=== PATIENT | female | born 1955 | race Caucasian/White ===

== ENCOUNTER 2019-05-13 09:00 | Emergency (ER) | payer BC ==
--- OUTSIDE RECORDS SUMMARY | 2019-05-13 09:12 | XMS REPORT | Continuity of Care Document ---
:1955 External Reference #:[id number] Author Name OLLIE Jenkins Address [address] [place] [address] Care Team Providers Name Role Phone Mecca Santiago M.D. - Family Medicine Care Team Information Proof Carrier Unavailable Dena Carney MD - Care Team Information Proof Carrier [phone] Gastroenterology Problems Active Problems Provider Date Gastroesophageal reflux disease Cherri Miles NP Onset: 01/02/2019 Essential hypertension Cherri Miles NP Onset: 01/02/2019 Hyperlipidemia Mecca Santiago M.D. Onset: 01/02/2019 Herpesvirus infection Mecca Santiago M.D. Onset: 02/27/2019 Tobacco user Mecca Santiago M.D. Onset: 02/27/2019 Social History Type Date Description Comments Sex Unknown Tobacco Use Start: Unknown Light tobacco smoker (10 or fewer cigarettes/day) ETOH Use Rare a drink at big gatherings Recreational Drug Use Marijuana Tobacco Use Reviewed: 02/27/19 Patient is a current 4-5 a day, ongoing 43 smoker, smokes every years, up to 1/2 ppd day decreased 4 years ago Smoking Status Reviewed: 02/27/19 Patient is a current 4-5 a day, ongoing 42 smoker, smokes every years, up to 1/2 ppd day decreased 4 years ago Exercise Type/Frequency Exercises sporadically Allergies, Adverse Reactions, Alerts Description No Known Drug Allergies Medications Active Medications SIG Qnty Indications Ordering Date Provider Macrobid 1 by mouth twice 10caps R30.0 Noelle 04/24/2019 100mg Capsules a day with meals OLLIE Loredo Albuterol Sulfate HFA Inhale 2 Puffs By 90units R06.02 Mecca Santiago 02/27 Mouth Every 4 M.D. 108(90Base) mcg/Act Hours as Needed Aerosol For Cough Or Shortness Of Breath Or Wheezing Bupropion take 1 tablet by 90tabs [facility]3], 11/23/2018 Hydrochloride ER (XL) mouth every M.D. morning 150mg Tablets ER 24HR Nexium 1 by mouth twice 180caps K21.9 [facility]3], 05/15/[address] a day M.D. Valacyclovir HCL Take 1 Tablet By 90tabs [facility]3], 500mg Mouth Every Day M.D. Tablets Metoprolol Tartrate 1 by mouth twice 180tabs [facility]3], a day M.D. 100mg Tablets Amlodipine Besylate take 1 tablet by 90tabs [facility]3], mouth every day M.D. 10mg Tablets Immunizations CPT Code Status Date Vaccine Lot # [id number] Given 04/24/2019 Influenza Vac, Quadrivalent, Slit Virus, Im [id number] Vital Signs Date Vital Result Comment 04/24/2019 10:39am BP Systolic 140 mmHg BP Diastolic 80 mmHg Heart Rate 60 /min Body Temperature 97.5 F Respiratory Rate 16 /min Weight 147.00 lb 02/27/2019 10:28am BP Systolic 120 mmHg BP Diastolic 70 mmHg Heart Rate 68 /min Body Temperature 98.0 F Respiratory Rate 16 /min Height 62 inches 5'2" Weight 149.00 lb BMI (Body Mass Index) 27.2 kg/m2 Results Test Date Facility Test Result H/L Range Note Ua - Non Micro ([facility]) 04/24/2019 Family Medicine Appearance cloudy (607)- - Color brown Glucose, Urine (a/CMC/CTX) negative Bilirubin ICTO NEG Ketones trace SP Grav 1.025 Blood large PH 5.0 Protein 100 High Ssa 3+ Urobil 0.2 Nitrite negative Leukocytes [place] Laboratory test 04/18/2019 [facility] SEE RESULT 1, 2 finding Order BELOW Ua - Non Micro 02/27/2019 Family Medicine Appearance CLEAR ([facility]) (607)- - Color YELLOW Glucose, Urine (a/CMC/CTX) NEG Bilirubin NEG Ketones NEG SP Grav 1.015 Blood NEG PH 5.0 Protein NEG Urobil 0.2 Nitrite NEG Leukocytes [place] NEG Comprehensive Metabolic 02/27/2019 [place] Milly([facility]) Sodium 144 mEq/L 134-149 Prof Potassium 4.5 mEq/L 3.6-5.5 Chloride 106 mEq/L 94-112 Carbon Dioxide 28 mEq/L 21-32 Glucose 84 mg/dL 70-105 BUN 19 mg/dL 6-26 Creatinine 0.7 mg/dL 0.6-1.4 BUN/Creat Ratio 27.1 CALC 8.0-36.0 Calcium 9.2 mg/dL 8.6-10.2 Total Protein 7.2 g/dL 6.4-8.3 Albumin 4.4 g/dL 3.8-5.5 Globulin 2.8 g/dL 2.0-4.8 A/G Ratio 1.6 CALC 0.6-2.3 Alk. Phosphatase 101 U/L 30-110 Alt (SGPT) 8 U/L 7-35 Ast (Sgot) 12 U/L 5-34 Total Bilirubin 0.5 mg/dL 0.2-1.3 GFR Non- >60 ml/min/1.73m^ >=60 GFR >60 ml/min/1.73m^ >=60 Laboratory test 02/27/2019 Francis Atkins([facility]) TSH 1.43 mIU/L 0.50-6.00 finding Lipid Profile 02/27/2019 Francis Atkins([facility]) Cholesterol 230 mg/dL High 120-200 Triglycerides 211 mg/dL High 30-200 HDL Cholesterol 43 mg/dL 30-85 LDL (Calculated) 145 CALC High 0-129 VLDL Cholesterol 42 mg/dL 0-50 HDL Risk Factor 5.3 CALC High 0.0-4.4 CBC Electronic a 02/27/2019 Francis Atkins([facility]) WBC 8.0 x10^3/UL 4.0- 10.0 RBC 4.83 x10^6/UL 3.93-6.00 HGB 14.6 g/dL 12.0-17.0 HCT 44 % 35-50 MCV 91.9 fL 80.0-95.0 MCH 30.2 pg 25.6-32.2 MCHC 32.9 g/dL 32.2-36.0 RDW-CV 13.6 % 11.6-14.4 PLT 244 x10^3/UL 163-400 MPV 11.2 fL 9.4-12.4 Ariadna# 5.18 x10^3/UL 1.56-6.13 Lymph# 1.26 x10^3/UL 1.18-3.74 Ware# 1.08 x10^3/UL High 0.24-0.82 Eos # 0.4 x10^3/UL 0.0-0.5 Baso # 0.08 x10^3/UL 0.01-0.08 Ariadna% 64.5 % 34.0-70.0 Lymph % 15.7 % Low 20.0-52.0 Ware% 13.5 % High 5.0-12.0 Eos% 4.4 % 0.7-7.0 Baso% 1.0 % 0.1-1.2 1 [id number] 2 SEE RESULT BELOW Name: RONALD BOURNE : [address]: Dena Carney MD Acct: [id number] Unit: [id number] AGE: 63 Location: ENDOCEC Re04/18/19 SEX: F Status: DEP REF SPEC: [id number] ANH: 04/18/19-1144 [facility] DR: Dena Alvarado MD REQ: [id number] RECD: 04/18/19-693 STATUS: OSEAS PRICE DR: Mecca Santiago MD _ ORDERED: LEVEL 4/3 COMMENTS: [id number] FINAL DIAGNOSIS 1. Colon, ascending, biopsy: -- Tubular adenoma. -- No high grade dysplasia or malignancy. 2. Colon, transverse, biopsy: -- Tubular adenoma. -- No high grade dysplasia or malignancy. 3. Colon, rectum, biopsy: -- Hyperplastic polyps. CLINICAL HISTORY History of polyps POST-OPERATIVE DIAGNOSIS Colonoscopy: to terminal ileum; 8 mm ascending cold snare; 8 mm descending cold snare; (2) rectal 4 mm cold snare; diverticulosis left colon; internal hemorrhoid; hyperplastic polyp GROSS DESCRIPTION 1. The specimen is received in formalin labeled, Ascending Colon Polyp, and consists of a 0.5 x 0.4 x 0.2 cm aggregate of louise-white irregular to polypoid soft tissue fragments which is submitted entirely in one cassette. 2. The specimen is received in formalin labeled, Transverse Colon Polyp, and consists of a 0.8 by up to 0.3 x 0.2 cm white-pink irregular soft tissue fragment which is submitted entirely in one cassette. 3. The specimen is received in formalin labeled, Rectal Polyps, and consists of two CONTINUED ON NEXT PAGE DEPARTMENT OF PATHOLOGY, [address] [place] [address] Terence Celeste M.D. Director [facility] # [id number] louise-white irregular to polypoid soft tissue fragments measuring 0.3 x 0.2 x 0.1 cm and 0.5 x 0.3 x 0.2 cm. The larger fragment is inked, bisected and the specimen is submitted entirely in one cassette. Signed by and Reported on: Noelle Gresham MD 04/19/19 1243 END OF REPORT DEPARTMENT OF PATHOLOGY, [facility] [address] [place], [place] [address] Terence Celeste M.D. Director [facility] # [id number] Procedures Date Code Description Status 03/28/2019 [id number] Mammogram Completed 10/11/2017 [id number] Mammogram Completed Medical Devices Description No Information Available Encounters Type Date Location Provider Dx Diagnosis Office Visit 02/27/2019 [facility] Office Mecca Santiago, I10 Essential ( primary) 10:20a M.D. hypertension K21.9 Gastro-esophageal reflux disease without esophagitis Z12.11 Encounter for screening for malignant neoplasm of colon F17.210 Nicotine dependence, cigarettes, uncomplicated Z12.31 Encntr screen mammogram for malignant neoplasm of breast R06.02 Shortness of breath Z00.01 Encounter for general adult medical exam w abnormal findings B00.9 Herpesviral infection, unspecified Z71.6 Tobacco abuse counseling Assessments Date Code Description Provider 04/24/2019 R30.0 Dysuria Noelle Loredo, [employer] 04/24/2019 Z23 Encounter for immunization LEXII JenkinsP 02/27/2019 I10 Essential (primary) hypertension Mecca Santiago M.D. 02/27/2019 K21.9 Gastro-esophageal reflux disease without Mecca Santiago M.D. esophagitis 02/27/2019 Z12.11 Encounter for screening for malignant Mecca Santiago M.D. neoplasm of colon 02/27/2019 F17.210 Nicotine dependence, cigarettes, Mecca Santiago M.D. uncomplicated 02/27/2019 Z12.31 Encounter for screening mammogram for Mecca Santiago M.D. malignant neoplasm of breast 02/27/2019 R06.02 Shortness of breath Mecca Santiago M.D. 02/27/2019 Z00.01 Encounter for general adult medical Mecca Santiago M.D. examination with abnormal findings 02/27/2019 B00.9 Herpesviral infection, unspecified Mecca Santiago M.D. 02/27/2019 Z71.6 Tobacco abuse counseling Mecca Santiago M.D. Plan of Treatment Future Appointment(s):09/03/2019 10:00 am - Mecca Santiago M.D. at [facility]9004/24/2019 - Noelle Loredo, FNPR30.0 DysuriaNew Medication:Macrobid 100 mg - 1 by mouth twice a day with [id number] Encounter for immunizationAllComments:Medication Management Patient Understands medications he 's taking? Yes No Are there Barriers to Adherence? Yes No Has the patient been asked about herbal supplements and therapies, andOTC meds? Yes No As always, we strongly encourage a healthy diet and making physical activity a part of your every day life. If you have questions about how or where to start, please contact the office. Functional Status Description No Information Available Mental Status Description No Information Available Referrals Refer to Reason for Referral Status Appt Date Dena Carney MD colonoscopy jw Scheduled 04/18/[address] [place] [address] [phone]
[2019-05-13 09:24] VITALS: BP 138/80
--- NOTE | 2019-05-13 10:26 | UC ---
Respiratory Complaint HPI - HPI Summary HPI Summary: 63 year old female with pMH + for HTN, _ tob use about 3-5 cigs/ day. presents with SOB, cough- non-productive mainly, intermittently productive, chills, decreased sleeping due to wheezing, SOB at night, must sleep upright. NO recent abx use, no recent infectiosn. 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 - History of Current Complaint Chief Complaint: UCRespiratory Stated Complaint: CHEST CONGESTION,COUGH Time Seen by Provider: 05/13/19 10:03 Hx Obtained From: Patient ?: No Onset/Duration: Sudden Onset, Lasting Days - since , Still Present Severity Initially: Mild Severity Currently: Mild Pain Intensity: 0 Pain Scale Used: 0-10 Numeric Character: Cough: Nonproductive - mainly, Cough: Productive Associated Signs And Symptoms: Positive: Chills, Wheezing. Negative: Dyspnea, Fever, Calf Pain, Calf Swelling, Nasal Congestion, Hoarseness, Sinus Discomfort - Allergies/Home Medications Allergies/Adverse Reactions: Allergies Allergy/AdvReac Type Severity Reaction Status Date / Time No Known Allergies Allergy Verified 05/13/19 09:24 Home Medications: Home Medications L.acidoph,Paracasei, B.lactis [Probiotic] 1 tab PO DAILY 05/13/19 [History Confirmed 05/13/19] PMH/Surg Hx/FS Hx/Imm Hx Previously Healthy: Yes Cardiovascular History: Hypertension - Surgical History Surgical History: Yes Surgery Procedure, Year, and Place: LEFT FOOT BUNIONECTOMY 2000. hysterectomy. vein stripping - Family History Known Family History: Positive: Cardiac Disease, Diabetes - Social History Occupation: Employed Full-time Alcohol Use: Occasionally Substance Use Type: Marijuana Substance Use Comment - Amount & Last Used: MARIJUANA BUTTER FOR LEG PAIN Smoking Status (MU): Light Every Day Tobacco Smoker Amount Used/How Often: 3-5 cigarettes/day Have You Smoked in the Last Year: Yes When Did the Patient Quit Smoking/Using Tobacco: IN THE PROCESS OF QUITTING Household Exposure Type: Cigarettes - Immunization History Most Recent Influenza Vaccination: 2016 Most Recent Pneumonia Vaccination: HAS NOT HAD Review of Systems All Other Systems Reviewed And Are Negative: Yes Constitutional: Positive: Chills, Fatigue ENT: Positive: Sore Throat, Sinus Congestion, Sinus Pain/Tenderness. Negative: Ear Ache, Nasal Discharge Respiratory: Positive: Cough Is Patient Immunocompromised?: No Physical Exam Triage Information Reviewed: Yes Appearance: Well-Appearing, No Pain Distress, Well-Nourished Vital Signs: Initial Vital Signs Temp 97.7 F 05/13/19 09:18 Pulse 60 05/13/19 09:18 Resp 16 05/13/19 09:18 BP 138/80 05/13/19 09:18 Pulse Ox 95 05/13/19 09:18 Vital Signs Reviewed: Yes Eyes: Positive: Conjunctiva Clear ENT: Positive: Pharynx normal, TMs normal, Uvula midline. Negative: Nasal congestion, Nasal drainage, TM bulging, TM dull, TM red, Tonsillar swelling, Tonsillar exudate, Sinus tenderness Neck: Positive: Supple, Nontender, No Lymphadenopathy. Negative: Nuchal Rigidity, Enlarged Nodes @ Respiratory: Positive: Chest non-tender, Lungs clear, Normal breath sounds, No respiratory distress, No accessory muscle use. Negative: Respiratory distress, Crackles, Rhonchi, Stridor, Wheezing Cardiovascular: Positive: RRR, No Murmur Musculoskeletal Exam: Normal Neurological Exam: Normal Respiratory Course/Dx - Course Course Of Treatment: Acute bronchitis: - Nebulizer as needed at home for shortness of breath, cough - ALbuterol inhaler as needed every 4 hours for SOB, cough - Augmentin x 7 days for symptoms and possible secondary bacterial infection, more likely due to tobacco use - Over the counter medications for runny nose, symptoms - Return or go to ER with increased symptoms, fever > 102, shortness of breath, lightheadedness, dizziness. - Differential Dx/Diagnosis Differential Diagnosis/HQI/PQRI: Influenza, Lower Resp Infection, Sinusitis Provider Diagnosis: Acute bronchitis Discharge ED - Sign-Out/Discharge Documenting (check all that apply): Patient Departure All imaging exams completed and their final reports reviewed: No Studies - Discharge Plan Condition: Good Disposition: HOME Prescriptions: Albuterol 2.5MG/3ML (0.083%)* [Ventolin 2.5 MG/3 ML NEB.DAKOTA*] 2.5 mg INH Q4H # 30 neb.dakota Amoxicillin/Clavulanate TAB* [Augmentin TAB 875*] 875 mg PO BID #14 tab Patient Education Materials: Acute Bronchitis (ED), Bronchospasm (ED) Referrals: Mecca Santiago MD [Primary Care Provider] - Additional Instructions: - Nebulizer as needed at home for shortness of breath, cough - ALbuterol inhaler as needed every 4 hours for SOB, cough - Augmentin x 7 days for symptoms and possible secondary bacterial infection, more likely due to tobacco use - Over the counter medications for runny nose, symptoms - Return or go to ER with increased symptoms, fever > 102, shortness of breath, lightheadedness, dizziness. - Billing Disposition and Condition Condition: GOOD Disposition: Home
== END 2019-05-13 10:32 | disposition home or self-care (01) ==
LOC: UCCORT 09:00
DX: J20.9 Acute bronchitis, unspecified (principal); I10 Essential (primary) hypertension; F17.210 Nicotine dependence, cigarettes, uncomplicated
CPT/HCPCS: 99212; G0463

== ENCOUNTER 2019-05-16 03:57 | Observation (INO) | payer BC ==
[2019-05-16] MEDS ORDERED: Albuterol 0.5% CONC NEB.SOL* 5 MG/ML 20 ml BOT INH ONE (04:09)
--- NOTE | 2019-05-16 04:10 | ED ---
Shortness of Breath - HPI Summary HPI Summary: 63 year old F brought in by EMS to [facility] accompanied by daughter complains of worsening shortness of breath since 05/09. States , had productive cough with white, creamy phlegm. Was seen at [facility] on Sunday 05/13, given Albuterol, and had CXR done. States she went to see her primary care provider yesterday 05/15, and was prescribed prednisone but it hasn't been called in. States that yesterday 05/15 PM, difficulty breathing significantly worsened so patient called EMS. Nurse states EMS gave patient Decadron 10 mg and 2 breathing treatments. No fever, chills, swelling of bilateral lower extremities, decreased appetite. Symptoms aggravated by nothing. Symptoms alleviated by nothing. Patient states she stopped smoking Friday 05/11. Has respiratory hx. - History of Current Complaint Time Seen by Provider: 05/16/19 04:04 Hx Obtained From: Patient Onset/Duration: Lasting Days - 05/09, Still Present, Worse Since - yesterday 05/15 PM Timing: Constant Aggravating Factors: Nothing Alleviating Factors: Nothing - Allergy/Home Medications Allergies/Adverse Reactions: Allergies Allergy/AdvReac Type Severity Reaction Status Date / Time No Known Allergies Allergy Verified 05/16/19 04:04 Home Medications: Home Medications Amlodipine Besylate [Norvasc] 10 mg PO DAILY 05/16/19 [History Confirmed ] Esomeprazole(NF) [Nexium(NF)] 1 cap PO BID 05/16/19 [History Confirmed 05/16/19] buPROPion HCl [Bupropion Xl] 150 mg PO DAILY 05/16/19 [History Confirmed ] PMH/Surg Hx/FS Hx/Imm Hx Endocrine/Hematology History: Denies: Hx Diabetes Cardiovascular History: Reports: Hx Hypertension, Other Cardiovascular Problems/ Disorders - STRESS TEST-DR. GODOY Denies: Hx Pacemaker/ICD Respiratory History: Denies: Hx Asthma Musculoskeletal History: Reports: Hx Arthritis - LEGS Sensory History: Reports: Hx Contacts or Glasses - GLASSES Denies: Hx Hearing Aid Opthamlomology History: Reports: Hx Contacts or Glasses - GLASSES Psychiatric History: Reports: Hx Anxiety - SOME Denies: Hx Panic Disorder - Cancer History Hx Chemotherapy: No Hx Radiation Therapy: No - Surgical History Surgery Procedure, Year, and Place: LEFT FOOT BUNIONECTOMY 2000. hysterectomy. vein stripping Hx Anesthesia Reactions: No - Family History Known Family History: Positive: Cardiac Disease, Diabetes - Social History Alcohol Use: Occasionally Hx Substance Use: Yes Substance Use Type: Reports: Marijuana Hx Tobacco Use: Yes Smoking Status (MU): Light Every Day Tobacco Smoker Amount Used/How Often: 3-5 cigarettes/day Have You Smoked in the Last Year: Yes Review of Systems Negative: Fever, Chills Positive: Shortness Of Breath, Cough Gastrointestinal: Negative - decreased appetite Musculoskeletal: Negative - swelling bilateral lower extremities All Other Systems Reviewed And Are Negative: Yes Physical Exam - Summary Physical Exam Summary: Appearance: Middle aged slender woman sitting in stretcher in mild distress Skin: Warm, dry, no obvious rash Eyes: sclera anicteric, no conjunctival pallor ENT: mucous membranes moist, pharynx appears normal Neck: Supple, nontender Respiratory: Diffuse expiratory wheezing with prolongation of expiratory phase, no focal signs of consolidation Cardiovascular: Slightly tachycardic. Normal S1, S2. No murmurs. Normal distal pulses in tibial and radial bilaterally. Abdomen: Soft, nontender, normal active bowel sounds present Musculoskeletal: Normal, Strength/ROM Intact Neurological: A&Ox3, awake and alert, mentation is normal, speech is fluent and appropriate Psychiatric: affect is normal, does not appear anxious or depressed Triage Information Reviewed: Yes Vital Signs Reviewed: Yes Procedures - Sedation Patient Received Moderate/Deep Sedation with Procedure: No Diagnostics - Laboratory Result Diagrams: 05/16/19 04:20 05/16/19 04:20 Lab Statement: Any lab studies that have been ordered have been reviewed, and results considered in the medical decision making process. - EKG 0428 Cardiac Rate: NL - 83 BPM EKG Rhythm: Sinus Rhythm Summary of EKG Findings: PVCs Re-Evaluation - Re-Evaluation First Eval Re-Evaluation Time: 06:39 Change: Improved Comment: her lungs are clear of any wheezing. she has good airation. she looks much better. I turned off her oxygen and we will see what her O2 sat is Course/Dx - Course Course Of Treatment: 63 year old F complains of worsening shortness of breath since 05/09. Patient received 2 breathing treatments and 10 mg Decadron IV. Upon exam, the patient has diffuse expiratory wheezing with prolongation of expiratory phase, no focal signs of consolidation. SHe is slightly tachycardic. Bloodwork results with no significant abnormalities except for WBC 18.1, RBC 5.02, absolute neuts 16.1, absolute lymphs 0.5, glucose 161. An EKG at 04:28 shows NSR 83 BPM and PVCs. In the ED course, the patient was given an albuterol treatment. We tried turning patient's oxygen off to see how she would do. Patient becomes hypoxic. Spoke with Dr. Raphael, hospitalist, who agrees to admit patient. The patient will be admitted to the hospitalist. - Diagnoses Provider Diagnoses: COPD exacerbation, Hypoxemia - Physician Notifications Discussed Care of Patient With: Vanesa Raphael Time Discussed With Above Provider: 06:53 Instructed by Provider To: Other - Dr. Raphael, hospitalist, agrees to admit patient. Discharge ED - Sign-Out/Discharge Documenting (check all that apply): Patient Departure - Admit - Discharge Plan Condition: Stable Disposition: ADMITTED TO [facility] - Billing Disposition and Condition Condition: STABLE Disposition: Admitted to [facility] - Attestation Statements Document Initiated by Noraibe: Yes Documenting Scribe: nAn Cleary Provider For Whom Contreras is Documenting (Include Credential): Alex Steele MD Scribe Attestation: IAnn, scribed for Alex Steele MD on 05/16/19 at 1837. Scribe Documentation Reviewed: Yes Provider Attestation: The documentation as recorded by the noraibAnn anders accurately reflects the service I personally performed and the decisions made by me, Alex Steele MD Status of Scribe Document: Viewed
[2019-05-16 04:27] LABS: ABS Basophils 0.1 10^3/ul (0-0.2); ABS Eosinophils 0.6 10^3/ul (0-0.6); ABS Lymphocytes 0.5 10^3/ul (1.0-4.8); ABS Monocytes 0.8 10^3/ul (0-0.8); ABS Neutrophils 16.1 10^3/ul (1.5-7.7); Eosinophil % 3.1 %; Hematocrit 45 % (35-47); Lymphocyte % 2.7 %; Mean Corpuscular HGB Conc 33 g/dL (31-36); Mean Corpuscular Hemoglobin 30 pg (27-31); Mean Corpuscular Volume 90 fL (80-97); Mean Platelet Volume 9.6 fL (7.4-10.4); Platelet Count 233 10^3/uL (150-450); Red Blood Count 5.02 10^6 /uL (3.70-4.87); Red Cell Distribution Width 14 % (10-15); White Blood Count 18.1 10^3/uL (3.5-10.8)
[2019-05-16 04:49] LABS: Albumin 4.3 g/dL (3.2-5.2); Albumin/Globulin Ratio 1.4 (1-3); BUN/Creatinine Ratio 17.8 (8-20); Calcium 9.4 mg/dL (8.6-10.3); EGFR African American 97.7 (>60); EGFR Non-African American 80.8 (>60); Globulin 3.1 g/dL (2-4); Potassium 3.5 mmol/L (3.5-5.0); Total Bilirubin 0.5 mg/dL (0.2-1.0); Total Protein 7.4 g/dL (6.4-8.9)
[2019-05-16 04:50] LABS: Troponin I 0.01 ng/mL (<0.04)
--- OUTSIDE RECORDS SUMMARY | 2019-05-16 05:00 | XMS REPORT | Continuity of Care Document ---
:1955 External Reference #:[id number] Author Name OLLIE Jenkins Address [address] [place] [address] Care Team Providers Name Role Phone Mecca Santiago M.D. - Family Medicine Care Team Information Records And Information Manager Unavailable Dena Carney MD - Care Team Information Records And Information Manager [phone] Gastroenterology Problems Active Problems Provider Date Gastroesophageal [...] Medications SIG Qnty Indications Ordering Date Provider Albuterol Sulfate HFA Inhale 2 Puffs By 90units R06.02 Mecca Santiago, 02/27 Mouth Every 4 M.D. 108(90Base) mcg/Act Hours as Needed Aerosol For Cough Or Shortness Of Breath Or Wheezing Bupropion take 1 tablet by 90tabs Mecca Santiago, 11/23/2018 Hydrochloride ER (XL) mouth every M.D. morning 150mg Tablets ER 24HR Nexium 1 by mouth twice 180caps K21.9 [facility], 05/15/[address] a day M.D. Valacyclovir HCL Take 1 Tablet By 90tabs [facility], 500mg Mouth Every Day M.D. Tablets Metoprolol Tartrate 1 by mouth twice 180tabs [facility], a day M.D. 100mg Tablets Amlodipine Besylate take 1 tablet by 90tabs [facility], mouth every day M.D. 10mg Tablets History Medications Macrobid 1 by mouth 10caps R30.0 Noelle Loredo, 04/24/2019 - 100mg twice a day MACHINE INSPECTOR 05/15/2019 Capsules with meals Immunizations CPT Code Status Date Vaccine Lot # [id number] Given 04/24/2019 Influenza Vac, Quadrivalent, Slit Virus, Im [id number] Vital Signs Date Vital Result Comment 05/15/2019 2:18pm BP Systolic 112 mmHg BP Diastolic 70 mmHg Heart Rate 78 /min Body Temperature 97.9 F Respiratory Rate 20 /min O2 % BldC Oximetry 87 % Ra Weight 143.00 lb 04/24/2019 10:39am BP Systolic 140 mmHg BP Diastolic 80 mmHg Heart Rate 60 /min Body Temperature 97.5 F Respiratory Rate 16 /min Weight 147.00 lb Results Test Date Facility Test Result H/L Range Note Ua - Non Micro (a) 04/24/2019 [facility] Appearance cloudy (607)- - Color brown Glucose, Urine (Fma/CMC/CTX) negative Bilirubin ICTO NEG Ketones trace SP Grav 1.025 Blood large PH 5.0 Protein 100 High Ssa 3+ Urobil 0.2 Nitrite negative Leukocytes ([facility]) large Urine Culture And 04/24/2019 [facility] Urine Culture SEE RESULT 1 Sensitivities BELOW Laboratory test 04/18/2019 [facility] Surgical SEE RESULT 2, 3 finding Pathology Order BELOW Ua - Non Micro (a) 02/27/2019 Family Medicine Appearance CLEAR (607)- - Color YELLOW Glucose, Urine (a/[facility]/CTX) NEG Bilirubin NEG Ketones NEG SP Grav 1.015 Blood NEG PH 5.0 Protein NEG Urobil 0.2 Nitrite NEG Leukocytes (a/[facility]) NEG Comprehensive Metabolic 02/27/2019 Blanco Flora([facility]) Sodium 144 mEq/L 134-149 Prof Potassium 4.5 [...] GFR >60 ml/min/1.73m^ >=60 Laboratory test 02/27/2019 Blanco Flora([facility]) TSH 1.43 mIU/L 0.50-6.00 finding Lipid Profile 02/27/2019 Francis Atkins([facility]) Cholesterol 230 mg/dL High 120-200 Triglycerides 211 mg/dL High 30-200 HDL Cholesterol 43 mg/dL 30-85 LDL (Calculated) 145 CALC High 0-129 VLDL Cholesterol 42 mg/dL 0-50 HDL Risk Factor 5.3 CALC High 0.0-4.4 CBC Electronic Fma 02/27/2019 Blanco Milly([facility]) WBC 8.0 x10^3/UL 4.0- 10.0 RBC 4.83 x10^6/UL 3.93-6.00 HGB 14.6 g/dL 12.0-17.0 HCT 44 % 35-50 MCV 91.9 fL 80.0-95.0 MCH 30.2 pg 25.6-32.2 MCHC 32.9 g/dL 32.2-36.0 RDW-CV 13.6 % 11.6-14.4 PLT 244 x10^3/UL 163-400 MPV 11.2 fL 9.4-12.4 [place]# 5.18 x10^3/UL 1.56-6.13 Lymph# 1.26 x10^3/UL 1.18-3.74 [place]# 1.08 x10^3/UL High 0.24-0.82 Eos # 0.4 x10^3/UL 0.0-0.5 Baso # 0.08 x10^3/UL 0.01-0.08 [place]% 64.5 % 34.0-70.0 Lymph % 15.7 % Low 20.0-52.0 [place]% 13.5 % High 5.0-12.0 Eos% 4.4 % 0.7-7.0 Baso% 1.0 % 0.1-1.2 1 SEE RESULT BELOW Name: RONALD BOURNE : [address]: Noelle Loredo NP Acct: [id number] Unit: [id number] AGE: 63 Location: [facility] Re04/24/19 SEX: F Status: REG REF SPEC: [id number] ANH: 04/24/[address]: Noelle Loredo 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 END OF REPORT DEPARTMENT OF PATHOLOGY, [address] [place] [address] Terence Celeste M.D. Director [facility] # [id number] 2 [id number] SEE RESULT BELOW Name: RONALD BOURNE : [address]: Dena Carney MD Acct: [id number] Unit: [id number] AGE: 63 Location: [facility] Re04/18/19 SEX: F Status: DEP REF SPEC: [id number] ANH: 04/18/191144 [facility] DR: Dena Alvarado MD REQ: [id number] RECD: 04/18/19 STATUS: OSEAS PRICE DR: Mecca Santiago MD _ ORDERED: LEVEL 4/3 COMMENTS: [id number] FINAL DIAGNOSIS 1. Colon, ascending, biopsy: -- [...] CONTINUED ON NEXT PAGE DEPARTMENT OF PATHOLOGY, [address] [place] [address] Terence Celeste M.D. Director [facility] # [id number] louise-white irregular to polypoid soft tissue fragments measuring 0.3 x 0.2 x 0.1 cm and 0.5 x 0.3 x 0.2 cm. The larger fragment is inked, bisected and the specimen is submitted entirely in one cassette. Signed by and Reported on: Noelle Gresham MD 04/19/19 1243 END OF REPORT DEPARTMENT OF PATHOLOGY, [address] [place] [address] Terence Celeste M.D. Director [facility] # [id number] Procedures Date Code Description Status 04/18/2019 [id number] Colonoscopy Completed 03/28/2019 [id number] Mammogram Completed 10/11/2017 [id number] Mammogram Completed Medical Devices Description No Information Available Encounters Type Date Location Provider Dx Diagnosis Office Visit 04/24/2019 10:15a [facility] OLLIE Jenkins R30.0 Dysuria Z23 Encounter for immunization Office Visit 02/27/2019 10:20a [facility] Office Mecca Santiago, I10 Essential (primary) M.DTip hypertension K21.9 Gastro-esophageal reflux disease without esophagitis Z12.11 Encounter for screening for malignant neoplasm of colon F17.210 Nicotine dependence, cigarettes, uncomplicated Z12.31 Encntr screen mammogram for malignant neoplasm of breast R06.02 Shortness of breath Z00.01 Encounter for general adult medical exam w abnormal findings B00.9 Herpesviral infection, unspecified Z71.6 Tobacco abuse counseling Assessments Date Code Description Provider 05/15/2019 R05 Cough OLLIE Jenkins 05/15/2019 J20.9 Acute bronchitis, unspecified OLLIE Jenkins 05/15/2019 R06.02 Shortness of breath OLLIE Jenkins 05/15/2019 R06.00 Dyspnea, unspecified Noelle Gertrude, [facility] 05/15/2019 R09.02 Hypoxemia Noelle Gertrude, MACHINE INSPECTOR 04/24/2019 R30.0 Dysuria Noelledamián Loredo, [facility] 04/24/2019 Z23 Encounter for immunization Noelle Gertrude, [facility] 02/27/2019 I10 Essential (primary) hypertension Mecca Santiago [...] Mecca Santiago M.D. Plan of Treatment Future Appointment(s):05/21/2019 9:30 am - Cherri Miles NP at Main Dcuzhu3109/03/2019 10:00 am - Mecca Santiago M.D. at [facility] Tiffdv1405/15/2019 - Noelle Loredo, [id number] CoughNew Xrays:Chest 2 Views, Ordered: 05/15/19J20.9 Acute bronchitis, elirtlbrxmxD46.02 Shortness of nbudyfE69.00 Dyspnea, rhgocoaucquC66.02 HypoxemiaAllComments:Medication Management Patient Understands medications he 's taking? [...] jw Scheduled 04/18/[address] [place] [address] [phone]
[2019-05-16] MEDS ORDERED: Albuterol 2.5 MG/3 ML NEB.SOL* (0.083%) INH PRN (06:54)
[2019-05-16] MEDS ORDERED: Acetaminophen TAB* 325 MG PO PRN (06:54)
[2019-05-16] MEDS ORDERED: Enoxaparin(*) 40 MG/0.4 ML SYR SUBCUT SCH (07:00)
[2019-05-16 07:12] LABS: Magnesium 1.7 mg/dL (1.9-2.7)
[2019-05-16] MEDS ORDERED: Magnesium Sulfate 2 GM IV* 2 GM/50 ML BAG IVPB ONE (07:23)
[2019-05-16] MEDS ORDERED: Famotidine TAB* 20 MG PO PRN (07:29)
[2019-05-16] MEDS: Albuterol/Ipratropium NEB.SOL* Albuterol 2.5 MG/Ipratropium 0.5 MG 3 ML INH SCH ×4 (07:30→19:19)
[2019-05-16] MEDS ORDERED: BuPROPion XL* 150 MG TAB.XL PO SCH (09:00)
[2019-05-16] MEDS ORDERED: Pantoprazole TAB * 40 MG TAB PO SCH (09:00)
[2019-05-16] MEDS ORDERED: Metoprolol Tartrate TAB* 100 MG TAB PO SCH (09:00)
[2019-05-16] MEDS: predniSONE TAB* 20 MG PO SCH (09:36)
[2019-05-16] MEDS: Lactobacillus Acidophilus* 1 TAB PO SCH (09:36)
[2019-05-16] MEDS: amLODIPine TAB* 5 MG PO SCH (09:36)
[2019-05-16] MEDS: ValACYclovir (*) 500 MG TAB PO SCH (09:39)
--- NOTE | 2019-05-16 13:09 | HP ---
CC: Mecca Santiago MD * HISTORY AND PHYSICAL: DATE OF ADMISSION: 05/16/19 PRIMARY CARE PHYSICIAN: Mecca Santiago MD. HEALTHCARE PROXY: Her son Fernando. CODE STATUS: Full. CHIEF COMPLAINT: One week of progressive shortness of breath associated with productive cough. HISTORY OF PRESENT ILLNESS: Ms. Lambert is a 63-year-old woman with a history of hypertension and tobacco use, who was presenting with 1 week of shortness of breath. She reports approximately 1 week ago she began feeling shortness of breath, worse on exertion. This was associated with a cough productive of white phlegm. She denies associated upper respiratory infection symptoms. She presented to an urgent care where she was given Augmentin, although she did deny fevers and chills. Over the following days, her symptoms continued to worsen until they were associated with a wheeze, so she saw her outpatient provider who ordered for her steroids and home oxygen and a nebulizer without any other medications; however, before patient was able to get these from the pharmacy, she felt like her symptoms acutely worsened, so she presented to the emergency room. She denies chest pain, palpitations, orthopnea, lower extremity edema, abdominal pain, constipation, nausea, vomiting, or diarrhea. She does not think her symptoms got better with Augmentin. PAST MEDICAL HISTORY: 1. Hypertension. 2. Genital herpes, on suppressive therapy. 3. Active tobacco use, on bupropion. 4. Reflux. HOME MEDICATIONS: 1. Amlodipine 10 mg daily. 2. Metoprolol tartrate 100 mg twice a day. 3. Bupropion 300 mg daily. 4. Esomeprazole 20 mg daily. 5. Valacyclovir 500 mg daily. 6. Lactobacillus probiotic. ALLERGIES: No known drug allergies. FAMILY HISTORY: The patient reports family is secretive and does not know specifics, but her father's side had heart disease and diabetes and her mother' s side had cancer of unknown etiology. 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 She also lives with her partner Lauro and son Fernando. Her son is also her healthcare proxy. The patient reports for 35 years she smoked approximately half a pack of cigarettes per day, although the last 2 years she would only smoke a few cigarettes per day. She quit smoking 5 days prior to presentation with the aid of bupropion. She denies alcohol or other drugs. REVIEW OF SYSTEMS: A complete 10-point review of systems was performed and pertinent positives and negatives are listed in the HPI. PHYSICAL EXAMINATION GENERAL: She is a well-appearing woman, in no acute distress. She is alert, interactive, speaking in full sentences without increased work of breathing. VITAL SIGNS: Afebrile, heart rate 80s, blood pressure 144/79, respiratory rate 16, oxygen saturation 95% on 2 L. HEENT: With moist mucous membranes. OP clear. NECK: No JVD. Supple. LUNGS: Clear to auscultation bilaterally. No expiratory wheezes. No focal consolidation. CARDIAC: Regular rate and rhythm. No murmurs, gallops, or rubs. ABDOMEN: Soft, nontender, nondistended. EXTREMITIES: Warm and well perfused without evidence of edema. NEURO: A and O x3. No focal deficits. Speech fluent. DIAGNOSTIC STUDIES/LAB DATA: CBC notable for leukocytosis to 18. Of note, this was taken after her steroids in ambulance. BMP and LFTs unremarkable. Chest x-ray preformed yesterday at PCP's office with hyperinflated lungs without focal air space opacification. EKG with normal sinus rhythm, heart rate 83, notable for a PVC. ASSESSMENT AND PLAN: Ms. Lambert is a 63-year-old woman with hypertension and significant tobacco use history, who is presenting with subacute progressive productive cough, dyspnea, and wheezing. She is found without evidence for infection or volume overload. 1. Dyspnea likely due to exacerbation of undiagnosed chronic obstructive pulmonary disease. She received IV steroids in the ambulance on the way to the emergency room. She will be continued on a prednisone oral burst for 4 days with DuoNeb for the first 24 hours and switched to albuterol as needed after that. Will consider discharging the patient on tiotropium inhaler. Will titrate supplemental oxygen to SaO2 88% to 92% and wean off as able. We will also check an ambulatory pulse oximetry. The patient was encouraged to abstain from cigarettes going forward. 2. History of tobacco use. The patient quit 5 days ago. Continue bupropion 300 mg daily. Declines nicotine replacement therapy. The patient states she has no cravings. 3. Hypertension. Continue amlodipine 10 mg daily. Switch metoprolol tartrate to succinate 200 mg nightly. 4. Herpes. Continue daily suppressive therapy with valacyclovir 500 mg daily. 5. Reflux. Given hypomagnesia, we will switch PPI to H2 truman as needed. The patient reports her symptoms are very mild. 6. DVT prophylaxis: Initiate Lovenox subcutaneous daily. 7. Code status: Full code. TIME SPENT: Approximately 60 minutes was spent on the admission of this patient , more than half of which was spent at bedside for interview and exam. [id number]/[facility] #: [id number] LISETTE
[2019-05-16] MEDS ORDERED: Metoprolol Succinate XL TAB* 200 MG TAB.XL PO SCH (21:00)
[2019-05-17] MEDS: amLODIPine TAB* 5 MG PO SCH (07:47)
[2019-05-17] MEDS: ValACYclovir (*) 500 MG TAB PO SCH (07:47)
[2019-05-17] MEDS: Lactobacillus Acidophilus* 1 TAB PO SCH (07:47)
[2019-05-17] MEDS: predniSONE TAB* 20 MG PO SCH (07:47)
[2019-05-17] MEDS ORDERED: Albuterol HFA INHALER* 8 gm MDI INH PRN (08:51)
[2019-05-17] MEDS ORDERED: Enoxaparin(*) 40 MG/0.4 ML SYR SUBCUT SCH (09:00)
[2019-05-17] MEDS ORDERED: BuPROPion XL* 300 MG TAB.XL PO SCH (09:00)
[2019-05-17] MEDS ORDERED: SPIRIVA Respimat* (tiotropium) 2.5 mcg/inh Inhaler INH SCH (09:30)
[2019-05-17 11:41] VITALS: BP 129/72
--- NOTE | 2019-05-17 13:15 | DS ---
CC: Dr. Mecca Santiago * DISCHARGE SUMMARY: DATE OF ADMISSION: 05/16/19 DATE OF DISCHARGE: 05/17/19 PRIMARY CARE PROVIDER: Dr. Mecca Santiago. PRIMARY DIAGNOSIS: Chronic obstructive pulmonary disease with exacerbation. SECONDARY DIAGNOSES: 1. Hypertension. 2. Acid reflux. 3. Active tobacco use, on bupropion. DISCHARGE MEDICATIONS: 1. Prednisone 40 mg daily for 2 more days. 2. Tiotropium 1 inhalation daily. 3. Albuterol MDI 1 inhalation every 4 hours as needed for shortness of breath. 4. Amlodipine 10 mg nightly. 5. Metoprolol succinate 200 mg nightly. 6. Bupropion 300 mg XR daily. 7. Valacyclovir 500 mg daily. 8. Famotidine 20 mg daily as needed for heartburn. 9. Probiotic 1 capsule daily. HISTORY OF PRESENT ILLNESS: Ms. Lambert is a 63-year-old woman with a history of hypertension and active tobacco use, who is presenting with 1 week of progressive shortness of breath. She reports that approximately 1 week ago, she began feeling dyspnea with exertion. Her dyspnea was associated with cough productive of white sputum. She denied associated upper respiratory infection symptoms such as sore throat, runny nose, sneezing. She presented to urgent care at that time where she was given Augmentin, although she did deny fevers and chills. Over the following days, her symptoms continued to worsen and they were associated with wheezing, so she went to her outpatient provider, who ordered her for steroids and home oxygen with nebulizer treatments. However, before the patient was able to get these prescriptions from the pharmacy, she felt her symptoms acutely worsened, so she called 911 who brought her to the emergency room. She denies associated chest pain, palpitations, orthopnea, lower extremity edema, abdominal pain, constipation, nausea, vomiting, or diarrhea. HOSPITAL COURSE: On the way to the ER, the patient was given IV steroids with nebulizers and experienced significant improvement in her symptoms. In the emergency room, the patient was noted to become hypoxic on room air down to 82% , so she was asked to be admitted to the hospitalist service for COPD exacerbation. Throughout first day of admission, the patient reported significant improvement in her symptoms and only experienced dyspnea on exertion. She was continued on an oral steroid burst with nebulizers as needed. By next day, the patient was feeling back to her baseline; however, on ambulation with nursing, the patient would desaturate to 82% on room air, so she was ordered for home oxygen services. She was also initiated on daily therapy for her new diagnosis of COPD. She was encouraged to continue with her smoking cessation efforts and she feels that her bupropion has significantly reduced her cravings. She thinks that she just needs to change her habits at this time. By day of discharge, a complete 10-point review of systems was performed and was negative. PHYSICAL EXAMINATION: Afebrile, heart rate 58, blood pressure 129/72, respiratory rate 22, oxygen saturation 92% on 2 L. In general, she is a well- appearing woman in no acute distress. She is alert and interactive, very pleasant, speaking in full sentences without increased work of breathing. HEENT : Moist mucous membranes. OP clear. Neck: No JVD. Supple. Lungs: Clear to auscultation bilaterally. No wheeze. Heart: Regular rate and rhythm. No murmurs, gallops, or rubs. Abdomen: Soft, nontender, nondistended. Normoactive bowel sounds. Extremities: Warm and well perfused without edema. Neuro: A and O x3. No focal deficits. DIAGNOSTIC STUDIES/LAB DATA: CBC with leukocytosis after steroids. BMP and LFTs unremarkable. Chest x-ray with hyperinflated lungs without focal airspace opacification. EKG with normal sinus rhythm, heart rate 83, 1 PVC noted. DISCHARGE PLAN: The patient should follow up closely with her primary care physician for management of her chronic medical problems. She is also referred to Dr. Amaro given new diagnosis of COPD clinically, now requiring oxygen therapy, although this may not be continuous churn buttermaker as the patient has recently quit smoking. She will be continued on a prednisone burst for 2 more days and she was also initiated on a daily tiotropium for her COPD treatment. Per patient request to reduce her number of medications per day, her metoprolol tartrate was switched to metoprolol succinate. Given her low magnesium level on presentation, her PPI was discontinued and the patient had no symptoms throughout hospitalization, but she was prescribed famotidine to take as needed for heartburn. The patient was educated on return precautions, which include, but are not limited to worsening shortness of breath or new symptoms of fevers and chills. She is to eat a healthy diet and low in processed foods and resume activity as tolerated. DISPOSITION: Home. CONDITION: Good. TIME SPENT: Approximately 60 minutes was spent on discharge of this patient, more than half of which was spent with care coordination at bedside for interview and exam. [id number]/[facility] #: [id number] LISETTE
[2019-05-17] MEDS ORDERED: guaiFENesin ER TAB 600 MG PO ONE (14:04)
== END 2019-05-17 15:10 | disposition home or self-care (01) ==
LOC: ED 03:57 → MED 06:54
PROVIDERS: ADMIT Internal Medicine; ATTEND Internal Medicine
DX: J44.1 Chronic obstructive pulmonary disease with (acute) exacerbation (principal); R09.02 Hypoxemia; I10 Essential (primary) hypertension; K21.9 Gastro-esophageal reflux disease without esophagitis; F17.210 Nicotine dependence, cigarettes, uncomplicated; Z79.899 Other long term (current) drug therapy; R06.02 Shortness of breath; A60.00 Herpesviral infection of urogenital system, unspecified; F41.9 Anxiety disorder, unspecified
CPT/HCPCS: 36415; 80053; 83735; 84484; 85025; 93005; 94640; 96365; 96372; 99284; A9270-GY; G0378; J1650; J3475; J3535; J7512; J7611

== ENCOUNTER 2019-08-26 11:03 | Emergency (ER) | payer BC ==
--- OUTSIDE RECORDS SUMMARY | 2019-08-26 11:13 | XMS REPORT | Continuity of Care Document ---
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 [phone] Medicine Problems Description No Information Available Social History Type Date Description Comments Sex Unknown ETOH Use Rarely consumes alcohol Tobacco Use Start: Unknown End: Patient is a former smoker Smoking Status Reviewed: 08/09/19 Patient is a former smoker Allergies, Adverse Reactions, Alerts Description No Known Drug Allergies Medications Active Medications SIG Qnty Indications Ordering Date Provider Prednisone 2 tab daily for 1 21units J44.1 08/09/2019 5mg (48) week, then 1 tab SARAH Gray TBPK daily for 1 week Azithromycin 2 tab daily on Mon, 48tabs J44.1 08/09/2019 250mg Wed and Fri SARAH Gray Tablets Spiriva Respimat 1 puff by mouth 4gm 07/25/2019 every day SARAH Gray 1.25mcg/Act Aerosol Oxygen please use o2 at 1units J44.9 Cristin Amaro, 06/20/2019 Misc 3l/min during exertion, pls provide pt with portable o2 concentrator Symbicort inhale 1 puff twice 10.200gm 05/31/2019 daily; rinse mouth SARAH Gray 80-4.5mcg/Act after use Aerosol Flutter use as instructed 1units J44.1 Cristin Amaro, 05/31/2019 Device twice a day MD Levalbuterol 1 puff 2-3 times 15gm Other Ordering 05/30/2019 Tartrate daily as needed for Provider 45mcg/Act sob Aerosol Albuterol Sulfate use nebulizer 3 60units Other Ordering 05/30/2019 times daily Provider (5mg/ML) 0.5% Nebulizer Pepcid take one 60tabs Other Ordering 05/30/2019 20mg Tablets capsule/tablet Provider daily by mouth Bupropion HCL ER TK 1 T PO qam Unknown (XL) 150mg Tablets ER 24HR Valacyclovir HCL TK 1 T PO qd Unknown 500mg Tablets Amlodipine Besylate TK 1 T PO qd Unknown 10mg Tablets Metoprolol Tartrate TK 1 T PO bid Unknown 100mg Tablets History Medications Prednisone 2 tabs daily for 7 28units J44.1 Carol Ann 07/02/2019 - 10mg days, 1 tab daily SARAH Gray 07/01/2019 (21) TBPK for 2 weeks Prednisone 2 tab daily for [address] [facility] 07/02/2019 - 10mg week, then 1 tab SARAH Gray 08/08/2019 Tablets daily for 2 weeks, then 1/2 tab daily for 2 weeks Prednisone 2 tabs daily for 7 28units J44.1 Cristin Amaro, 05/31/2019 - 10mg days, 1 tab daily 06/30/2019 (21) TBPK for 2 weeks Spiriva Handihaler take one 30caps [facility] 05/30/2019 - inhalation a day SARAH Gray 07/25/2019 18mcg Capsules Medications Administered in Office Medication SIG Qnty Indications Ordering Provider Date Inj, Regadenoson, 0.1 MG Nilson Aldana, DO [facility] 12/27/2017 Injection Technetium TC 99M Nilson Aldana, DO [facility] 12/27/2017 Tetrofosmin, Per Unit Dose Up To 40 Millicuries Injection Immunizations Description No Information Available Vital Signs Date Vital Result Comment 08/09/2019 9:14am Height 61 inches 5'1" Weight 142.25 lb Heart Rate 68 /min BP Systolic Sitting 122 mmHg Lue reg cuff BP Diastolic Sitting 76 mmHg Lue reg cuff O2 % BldC Oximetry 93 % On Poc set to 4 via NC BMI (Body Mass Index) 26.9 kg/m2 07/19/2019 10:10am Height 61 inches 5'1" Weight 145.00 lb Heart Rate 77 /min BP Systolic 142 mmHg BP Diastolic 74 mmHg O2 % BldC Oximetry 94 % BMI (Body Mass Index) 27.4 kg/m2 Results Test Acquired Date Facility Test Result H/L Range Note Order 06/20/2019 [facility] In-House 6 Minute Walk <pending> Procedures Date Code Description Status 07/22/2019 10665 Polysomnography Sleep Staging 4+ Parameters W/Cpap Completed 07/10/2019 05158 Sleep Study Unattended,HRT Rate,Oxygen Sat,Resp Completed Effort/Airflow 06/20/2019 64633 [facility] Measurement Heart Rate, Completed Oximetry 03/28/2019 43344 Diffusing Capacity Completed 03/28/2019 14364 Spirometry Incl Graphic Record Completed Medical Devices Description No Information Available Encounters Type Date Location Provider Dx Diagnosis Office Visit 07/19/2019 [facility] Carol Ann Lovell.9 Chronic 10:30a [facility] Gray obstructive [facility] pulmonary disease, unspecified R09.02 Hypoxemia G47.33 Obstructive sleep apnea (adult) (pediatric) J98.4 Other disorders of lung Z87.891 Personal history of nicotine dependence Office Visit 06/20/2019 9:00a [facility] Cristin J44.9 Chronic [facility] Prem obstructive [facility] pulmonary disease, unspecified R09.02 Hypoxemia R06.83 Snoring Office Visit 05/31/2019 8:00a [facility] Sleep Cristin Amaro MD R05 [facility] R06.02 Shortness of breath J44.1 Chronic obstructive pulmonary disease w (acute) exacerbation R09.02 Hypoxemia R06.83 Snoring Office Visit 05/17/2019 [facility] J44.1 Chronic 8:58a tyrone Youngblood MD obstructive [facility] pulmonary disease w (acute) exacerbation Office Visit 05/16/2019 [facility] R06.00 Dyspnea, 8:58a tyrone Youngblood MD unspecified [facility]ists Z87.891 Personal history of nicotine dependence Assessments Date Code Description Provider 08/09/2019 J44.1 Chronic obstructive pulmonary disease with Carol Ann Gray NP (acute) exacerbation 08/09/2019 R09.02 Hypoxemia Carol Ann Isaac, CHERRY GROWER 08/09/2019 J98.4 Other disorders of lung Carol Annspenser Gray, CHERRY GROWER 08/09/2019 G47.33 Obstructive sleep apnea (adult) (pediatric) Carol Ann Gray, CHERRY GROWER 08/09/2019 Z87.891 Personal history of nicotine dependence Carol Ann Gray, CHERRY GROWER 07/22/2019 G47.33 Obstructive sleep apnea (adult) (pediatric) Cristin Amaro MD 07/19/2019 J44.9 Chronic obstructive pulmonary disease, Carol Ann Gray, CHERRY GROWER unspecified 07/19/2019 R09.02 Hypoxemia Carol Ann Gray, CHERRY GROWER 07/19/2019 G47.33 Obstructive sleep apnea (adult) (pediatric) Carol Ann Gray, CHERRY GROWER 07/19/2019 J98.4 Other disorders of lung Carol Ann Gray, CHERRY GROWER 07/19/2019 Z87.891 Personal history of nicotine dependence Carol Ann Gray, CHERRY GROWER 07/10/2019 G47.33 Obstructive sleep apnea (adult) (pediatric) Cristin Amaro MD 06/20/2019 J44.9 Chronic obstructive pulmonary disease, Cristin Amaro MD unspecified 06/20/2019 R09.02 Hypoxemia Cristin Amaro MD 06/20/2019 R06.83 Snoring Cristin Amaro MD 05/31/2019 R05 Cough Cristin Amaro MD 05/31/2019 R06.02 Shortness of breath Cristin Amaro MD 05/31/2019 J44.1 Chronic obstructive pulmonary disease with Cristin Amaro MD (acute) exacerbation 05/31/2019 R09.02 Hypoxemia Cristin Amaro MD 05/31/2019 R06.83 Snoring Cristin Amaro MD 05/17/2019 J44.1 Chronic obstructive pulmonary disease with Vanesa Raphael MD (acute) exacerbation 05/16/2019 R06.00 Dyspnea, unspecified Vanesa Raphael MD 05/16/2019 Z87.891 Personal history of nicotine dependence Vanesa Raphael MD 03/28/2019 R06.02 Shortness of breath Cristin Amaro MD Plan of Treatment Future Appointment(s):09/17/2019 11:00 am - Carol Ann Gray NP at [facility]08/09/2019 - Carol Ann Gray, SARAHJ44.1 Chronic obstructive pulmonary disease with (acute) exacerbationNew Medication: Prednisone 5 mg (48) - 2 tab daily for 1 week, then 1 tab daily for 1 weekAzithromycin 250 mg - 2 tab daily on Mon, Wed and MonNew Labs:Sputum Culture & Sensitiv, Ordered: 08/09/19Nuclear AB (Maureen) By Ifa Igg, Ordered: 08/09/19Anca Panel For Vasculitis, Ordered: 08/09/19Angiotensin Converting Enzyme, Ordered: 08/09/19C Reactive Protein, Ordered: 08/09/19Cyclic Citrullinated Pep Igg, Ordered: 08/09/19Immunoglobulins Serum Quant, Ordered: Immunoglobulin E (Ige), Ordered: 08/09/19Rheumatoid Factor, Ordered: 08/09Follow up:Keep OV beginning of GxlzbQ72.02 HwxqefveyK82.4 Other disorders of lungG47.33 Obstructive sleep apnea (adult) (pediatric)Recommendations:You should be getting set up with your BiPAP soon. If you have any further questions, please call the [facility] at [phone] If you have any sleepiness while driving you MUST avoid operating a vehicle or machinery. If you feel tired while driving bone puller and take a nap or switch drivers. If you know you are sleepy and need to go somewhere, arrange for a ride or use public transportation. It is very important to not risk your safety or the safety of others.Z87.891 Personal history of nicotine dependence Functional Status Description No Information Available Mental Status Description No Information Available Referrals Description No Information Available
--- OUTSIDE RECORDS SUMMARY | 2019-08-26 11:13 | XMS REPORT | Continuity of Care Document ---
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 [phone] Medicine Problems Description No Information Available Social History Type Date Description Comments Sex Unknown ETOH Use Rarely consumes alcohol Tobacco Use Start: Unknown End: Unknown Patient is a former smoker Smoking Status Reviewed: 07/19/19 Patient is a former smoker Allergies, Adverse Reactions, Alerts Description No Known Drug Allergies Medications Active Medications SIG Qnty Indications Ordering Date Provider Prednisone 2 tab daily for 1 35tabs Carol Ann 07/02/2019 10mg week, then 1 tab SARAH Gray Tablets daily for 2 weeks, then 1/2 tab daily for 2 weeks Oxygen please use o2 at 1units J44.9 Cristin Amaro, 06/20/2019 Misc 3l/min during MD exertion, pls provide pt with portable o2 concentrator Symbicort inhale 1 puff twice 10.200gm Cristin Amaro, 05/31/2019 daily; rinse mouth 80-4.5mcg/Act after use # 2 given Aerosol Flutter use as instructed 1units J44.1 Cristin Amaro, 05/31/2019 Device twice a day Pepcimario alberto take one 60tabs Other Ordering 05/30/2019 20mg Tablets capsule/tablet Provider daily by mouth Spiriva Handihaler take one inhalation 30caps Other Ordering 05/30/2019 a day Provider 18mcg Capsules Albuterol Sulfate use nebulizer 3 60units Other Ordering 05/30/2019 times daily Provider (5mg/ML) 0.5% Nebulizer Levalbuterol 1 puff 2-3 times 15gm Other Ordering 05/30/2019 Tartrate daily as needed for Provider 45mcg/Act sob Aerosol Ibuprofen TK 1 T PO Q 6 H PRF Unknown 600mg Pain Tablets Bupropion HCL ER TK 1 T PO qam Unknown (XL) 150mg Tablets ER 24HR Valacyclovir HCL TK 1 T PO qd Unknown 500mg Tablets Amlodipine Besylate TK 1 T PO qd Unknown 10mg Tablets Metoprolol Tartrate TK 1 T PO bid Unknown 100mg Tablets History Medications Prednisone 2 tabs daily 28units J44.1 Carol Ann 07/02/2019 - 10mg (21) for 7 days, 1 SARAH Gray 07/01/2019 TBPK tab daily for 2 weeks Prednisone 2 tabs daily 28units J44.1 Cristin Amaro MD 05/31/2019 - 10mg (21) for 7 days, 1 06/30/2019 TBPK tab daily for 2 weeks Medications Administered in Office Medication SIG Qnty Indications Ordering Provider Date Inj, Regadenoson, 0.1 MG Nilson Aldana, DO [facility] 12/27/2017 Injection Technetium TC 99M Nilson Aldana, DO [facility] 12/27/2017 Tetrofosmin, Per Unit Dose Up To 40 Millicuries Injection Immunizations Description No Information Available Vital Signs Date Vital Result Comment 07/19/2019 10:10am Height 61 inches 5'1" Weight 145.00 lb Heart Rate 77 /min BP Systolic 142 mmHg BP Diastolic 74 mmHg O2 % BldC Oximetry 94 % BMI (Body Mass Index) 27.4 kg/m2 06/20/2019 8:55am Height 61 inches 5'1" Weight 146.00 lb Heart Rate 64 /min BP Systolic Sitting 138 mmHg BP Diastolic Sitting 80 mmHg O2 % BldC Oximetry 90 % BMI (Body Mass Index) 27.6 kg/m2 Results Test Acquired Date Facility Test Result H/L Range Note Order 06/20/2019 [employer] In-House 6 Minute Walk <pending> Procedures Date Code Description Status 07/10/2019 05856 Sleep Study Unattended,HRT Rate,Oxygen Sat,Resp Completed Effort/Airflow 06/20/2019 11490 [facility] Measurement Heart Rate, Completed Oximetry 03/28/2019 61835 Diffusing Capacity Completed 03/28/2019 55839 Spirometry Incl Graphic Record Completed Medical Devices Description No Information Available Encounters Type Date Location Provider Dx Diagnosis Office Visit 07/19/2019 [facility] Carol Ann J44.9 Chronic 10:30a [facility] Gray obstructive [employer] pulmonary disease, unspecified R09.02 Hypoxemia G47.33 Obstructive sleep apnea (adult) (pediatric) J98.4 Other disorders of lung Z87.891 Personal history of nicotine dependence Office Visit 06/20/2019 9:00a [facility] And Cristin J44.9 Chronic [facility] Prem obstructive [employer] pulmonary disease, unspecified R09.02 Hypoxemia R06.83 Snoring Office Visit 05/31/2019 8:00a Pul[facility] And Sleep Cristin Amaro MD R05 [facility] R06.02 Shortness of breath J44.1 Chronic obstructive pulmonary disease w (acute) exacerbation R09.02 Hypoxemia R06.83 Snoring Office Visit 05/17/2019 [facility] J44.1 Chronic 8:58a Asstyrone martines MD obstructive [facility] pulmonary disease w (acute) exacerbation Office Visit 05/16/2019 [facility] R06.00 Dyspnea, 8:58a Asstyrone martines MD unspecified Hospital[facility] Z87.891 Personal history of nicotine dependence Assessments Date Code Description Provider 07/19/2019 J44.9 Chronic obstructive pulmonary disease, Carol Ann Gray NP unspecified 07/19/2019 R09.02 Hypoxemia Carol Ann Gray NP 07/19/2019 G47.33 Obstructive sleep apnea (adult) (pediatric) Carol Ann Gray NP 07/19/2019 J98.4 Other disorders of lung Carol Ann Gray NP 07/19/2019 Z87.891 Personal history of nicotine dependence Carol Ann Gray NP 07/10/2019 G47.33 Obstructive sleep apnea (adult) (pediatric) [...] Gray NP at [facility]07/19/2019 - Carol Ann Gray NPJ44.9 Chronic obstructive pulmonary disease, unspecifiedFollow up:2 months (PAP titration prior)Recommendations:Continue doing your breathing exercises at home as you have been. If you decide you want to participate in pulmonary rehab, please call our office and we can send a owxoepspI69.02 HypoxemiaRecommendations :Please use your oxygen at 3L with exertion and at night. Your sleep study showed sleep apnea with significantly low oxygen, so I would like you to have an in-lab CPAP titration study to show us the optimal CPAP pressures and oxygen levels.G47.33 Obstructive sleep apnea (adult) (pediatric)New Orders:Sleep Study Cpap, Ordered: 07/19/19J98.4 Other disorders of lungZ87.891 Personal history of nicotine dependence Functional Status Description No Information Available Mental Status Description No Information Available Referrals Description No Information Available
[2019-08-26 12:04] LABS: ABS Basophils 0.1 10^3/ul (0-0.2); ABS Eosinophils 1.2 10^3/ul (0-0.6); ABS Lymphocytes 1.1 10^3/ul (1.0-4.8); ABS Monocytes 1.2 10^3/ul (0-0.8); ABS Neutrophils 6.7 10^3/ul (1.5-7.7); Eosinophil % 11.9 %; Hematocrit 44 % (35-47); Hemoglobin 14.7 g/dL (12.0-16.0); Lymphocyte % 11.1 %; Mean Corpuscular HGB Conc 33 g/dL (31-36); Mean Corpuscular Hemoglobin 31 pg (27-31); Mean Corpuscular Volume 93 fL (80-97); Mean Platelet Volume 9.5 fL (7.4-10.4); Nucleated Red Blood Cells % 0.1; Platelet Count 229 10^3/uL (150-450); Red Blood Count 4.77 10^6 /uL (3.70-4.87); Red Cell Distribution Width 15 % (10-15); White Blood Count 10.3 10^3/uL (3.5-10.8)
[2019-08-26 12:14] LABS: INR 1.12 (0.82-1.09)
[2019-08-26 12:17] LABS: Albumin 4.5 g/dL (3.2-5.2); Calcium 9.9 mg/dL (8.6-10.3); Potassium 3.9 mmol/L (3.5-5.0); Total Bilirubin 0.7 mg/dL (0.2-1.0)
[2019-08-26 12:23] LABS: Albumin/Globulin Ratio 1.5 (1-3); BUN/Creatinine Ratio 22.1 (8-20); EGFR African American 91.9 (>60); Total Protein 7.5 g/dL (6.4-8.9)
[2019-08-26 12:24] LABS: Troponin I 0.01 ng/mL (<0.03)
--- NOTE | 2019-08-26 12:57 | ED ---
HPI Cardiac - HPI Summary HPI Summary: 63 year old F presenting to [facility] alone complains of productive cough since two weeks ago, SOB, and CP described as a tightness. 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 Patient denies fever, chills, aches. Patients states she has recently used amlodipine and prednisone. The patient rates the pain 0/10 in severity. Pt states she has been on Symptoms aggravated by exertion. Symptoms alleviated by nothing. - History of Current Complaint Chief Complaint: EDShortnessOfBreath Stated Complaint: SOB,COUGH,CHEST PAIN PER PT Time Seen by Provider: 08/26/19 12:41 Hx Obtained From: Patient Onset/Duration: Started Days Ago, Still Present Timing: Lasting Days Pain Intensity: 0 Pain Scale Used: 0-10 Numeric Character: Tightness - but not currently Aggravating Factor(s): Exertion Alleviating Factor(s): Nothing - Additional Pertinent History Primary Care Physician: JAIME - Allergy/Home Medications Allergies/Adverse Reactions: Allergies Allergy/AdvReac Type Severity Reaction Status Date / Time No Known Allergies Allergy Verified 08/26/19 11:07 Home Medications: Home Medications Albuterol 2.5MG/3ML (0.083%)* [Ventolin 2.5 MG/3 ML NEB.DAKOTA*] 2.5 mg INH TID [History Confirmed 08/26/19] Budesonide/Formote 80/4.5(NF) [Symbicort 80/4.5 (NF)] 1 puff INH BID 08/26/19 [ History Confirmed 08/26/19] Famotidine TAB* [Pepcid 20 MG TAB*] 20 mg PO DAILY 08/26/19 [History Confirmed 08/26/19] Metoprolol Tartrate TAB* [Lopressor TAB*] 200 mg PO BID 08/26/19 [History Confirmed 08/26/19] Tiotropium CAPSULE (NF) [Spiriva CAPSULE (NF)] 1 cap INH BID 08/26/19 [History Confirmed 08/26/19] ValACYclovir (*) [Valtrex 500 mg (*)] 500 mg PO DAILY 08/26/19 [History Confirmed 08/26/19] Zinc 50 mg PO DAILY 08/26/19 [History Confirmed 08/26/19] PMH/Surg Hx/FS Hx/Imm Hx Endocrine/Hematology History: Denies: Hx Diabetes Cardiovascular History: Reports: Hx Hypertension, Other Cardiovascular Problems/ Disorders - STRESS TEST-DR. GODOY Denies: Hx Pacemaker/ICD Respiratory History: Reports: Hx Chronic Obstructive Pulmonary Disease (COPD) Denies: Hx Asthma Musculoskeletal History: Reports: Hx Arthritis - LEGS Sensory History: Reports: Hx Contacts or Glasses - GLASSES Denies: Hx Hearing Aid Opthamlomology History: Reports: Hx Contacts or Glasses - GLASSES Psychiatric History: Reports: Hx Anxiety - SOME Denies: Hx Panic Disorder - Cancer History Hx Chemotherapy: No Hx Radiation Therapy: No - Surgical History Surgery Procedure, Year, and Place: LEFT FOOT BUNIONECTOMY 2000. hysterectomy. vein stripping Hx Anesthesia Reactions: No - Immunization History Date of Influenza Vaccine: 2018 Infectious Disease History: No Infectious Disease History: Denies: Traveled Outside the [place] in Last 30 Days - Family History Known Family History: Positive: Cardiac Disease, Diabetes - Social History Alcohol Use: Rare Hx Substance Use: Yes Substance Use Type: Reports: Marijuana Substance Use Comment - Amount & Last Used: MARIJUANA BUTTER FOR LEG PAIN Hx Tobacco Use: Yes Smoking Status (MU): Former Smoker Amount Used/How Often: 3-5 cigarettes/day Have You Smoked in the Last Year: Yes Review of Systems Negative: Fever, Chills Positive: Chest Pain - tightness but not currently Positive: Shortness Of Breath, Cough - productive - white phlegm Musculoskeletal: Negative - negative - aches All Other Systems Reviewed And Are Negative: Yes Physical Exam - Summary Physical Exam Summary: Appearance: The patient is well-nourished in no acute distress and in no acute pain. Skin: The skin is warm and dry, and skin color reflects adequate perfusion. HEENT: The head is normocephalic and atraumatic. The pupils are equal and reactive. The conjunctivae are clear and without drainage. Nares are patent and without drainage. Mouth reveals moist mucous membranes, and the throat is without erythema and exudate. The external ears are intact. The ear canals are patent and without drainage. The tympanic membranes are intact. Neck: The neck is supple with full range of motion and non-tender. There are no carotid bruits. There is no neck vein distension. Respiratory: Decreased breath sounds. Cardiovascular: Heart is regular rate and rhythm. There is no murmur or rub auscultated. There is no peripheral edema and pulses are symmetrical and equal. Abdomen: The abdomen is soft and non-tender. There are normal bowel sounds heard in all four quadrants and there is no organomegaly palpated. Musculoskeletal: There is no back tenderness noted. Extremities are non-tender with full range of motion. There is good capillary refill. There is no peripheral edema or calf tenderness elicited. Neurological: Patient is alert and oriented to person, place and time. The patient has symmetrical motor strength in all four extremities. Cranial nerves are grossly intact. Deep tendon reflexes are symmetrical and equal in all four extremities. Psychiatric: The patient has an appropriate affect and does not exhibit any anxiety or depression. Triage Information Reviewed: Yes Vital Signs On Initial Exam: Initial Vitals Temp Pulse Resp BP Pulse Ox 97.5 F 67 19 153/88 92 08/26/19 11:04 08/26/19 11:04 08/26/19 11:04 08/26/19 11:04 08/26/19 11:04 Vital Signs Reviewed: Yes Procedures - Sedation Patient Received Moderate/Deep Sedation with Procedure: No Diagnostics - Vital Signs Vital Signs Temp Pulse Resp BP Pulse Ox 08/26/19 11:04 97.5 F 67 19 153/88 92 - Laboratory Lab Results: Lab Results 08/26/19 08/26/19 08/26/19 Range/Units 11:52 11:52 11:52 WBC 10.3 (3.5-10.8) 10^3/uL RBC 4.77 (3.70-4.87) 10^6 /uL Hgb 14.7 (12.0-16.0) g/dL Hct 44 (35-47) % MCV 93 (80-97) fL MCH 31 (27-31) pg MCHC 33 (31-36) g/dL RDW 15 (10-15) % Plt Count 229 (150-450) 10^3/uL MPV 9.5 (7.4-10.4) fL Neut % (Auto) 65.1 % Lymph % (Auto) 11.1 % Tama % (Auto) 11.2 % Eos % (Auto) 11.9 % Baso % (Auto) 0.7 % Absolute Neuts (auto) 6.7 (1.5-7.7) 10^3/ul Absolute Lymphs (auto) 1.1 (1.0-4.8) 10^3/ul Absolute Monos (auto) 1.2 H (0-0.8) 10^3/ul Absolute Eos (auto) 1.2 H (0-0.6) 10^3/ul Absolute Basos (auto) 0.1 (0-0.2) 10^3/ul Absolute Nucleated RBC 0.0 10^3/ul Nucleated RBC % 0.1 INR (Anticoag Therapy) (0.82-1.09) D-Dimer, Quantitative (Less Than 230) ng/mL Sodium 141 (135-145) mmol/L Potassium 3.9 (3.5-5.0) mmol/L Chloride 107 (101-111) mmol/L Carbon Dioxide 27 (22-32) mmol/L Anion Gap 7 (2-11) mmol/L BUN 17 (6-24) mg/dL Creatinine 0.77 (0.51-0.95) mg/dL Est GFR ( Amer) 91.9 (>60) Est GFR (Non-Af Amer) 76.0 (>60) BUN/Creatinine Ratio 22.1 H (8-20) Glucose 106 H (70-100) mg/dL Lactic Acid 1.4 (0.5-2.0) mmol/L Calcium 9.9 (8.6-10.3) mg/dL Total Bilirubin 0.70 (0.2-1.0) mg/dL AST 20 (13-39) U/L ALT 11 (7-52) U/L Alkaline Phosphatase 88 (34-104) U/L Troponin I 0.01 (<0.03) ng/mL B-Natriuretic Peptide (<=100) pg/mL Total Protein 7.5 (6.4-8.9) g/dL Albumin 4.5 (3.2-5.2) g/dL Globulin 3.0 (2-4) g/dL Albumin/Globulin Ratio 1.5 (1-3) 08/26/19 08/26/19 Range/Units 11:52 11:52 WBC (3.5-10.8) 10^3/uL RBC (3.70-4.87) 10^6 /uL Hgb (12.0-16.0) g/dL Hct (35-47) % MCV (80-97) fL MCH (27-31) pg MCHC (31-36) g/dL RDW (10-15) % Plt Count (150-450) 10^3/uL MPV (7.4-10.4) fL Neut % (Auto) % Lymph % (Auto) % Tama % (Auto) % Eos % (Auto) % Baso % (Auto) % Absolute Neuts (auto) (1.5-7.7) 10^3/ul Absolute Lymphs (auto) (1.0-4.8) 10^3/ul Absolute Monos (auto) (0-0.8) 10^3/ul Absolute Eos (auto) (0-0.6) 10^3/ul Absolute Basos (auto) (0-0.2) 10^3/ul Absolute Nucleated RBC 10^3/ul Nucleated RBC % INR (Anticoag Therapy) 1.12 H (0.82-1.09) D-Dimer, Quantitative 396 H (Less Than 230) ng/mL Sodium (135-145) mmol/L Potassium (3.5-5.0) mmol/L Chloride (101-111) mmol/L Carbon Dioxide (22-32) mmol/L Anion Gap (2-11) mmol/L BUN (6-24) mg/dL Creatinine (0.51-0.95) mg/dL Est GFR ( Amer) (>60) Est GFR (Non-Af Amer) (>60) BUN/Creatinine Ratio (8-20) Glucose (70-100) mg/dL Lactic Acid (0.5-2.0) mmol/L Calcium (8.6-10.3) mg/dL Total Bilirubin (0.2-1.0) mg/dL AST (13-39) U/L ALT (7-52) U/L Alkaline Phosphatase (34-104) U/L Troponin I (<0.03) ng/mL B-Natriuretic Peptide 39 (<=100) pg/mL Total Protein (6.4-8.9) g/dL Albumin (3.2-5.2) g/dL Globulin (2-4) g/dL Albumin/Globulin Ratio (1-3) Result Diagrams: 08/26/19 11:52 08/26/19 11:52 Lab Statement: Any lab studies that have been ordered have been reviewed, and results considered in the medical decision making process. - Radiology CXR Radiology Interpretation Completed By: Radiologist Summary of Radiographic Findings: IMPRESSION: NO ACTIVE CARDIOPULMONARY DISEASE. has reviewed this report. - EKG 1141 Cardiac Rate: NL EKG Rhythm: Sinus Rhythm Summary of EKG Findings: An EKG at 1141 reveals normal sinus rhythm, normal ST, no ectopy, and no STEMI at a rate of 57 bpm. has reviewed and interpreted this EKG. Disposition - Course Course Of Treatment: Ms. Cuevas is recently been treated for bronchitis. She was using prednisone which ended today. She felt particularly short of breath today and called the offices of Dr. Amaro. Dr. Amaro is out of town that she was told to come to the emergency department. She is nontoxic in appearance is stable vitals here. She had no respiratory distress. I'm going to give her additional prednisone and recommend that she follow up with Dr. Amaro when she gets back for a slow taper. - Diagnoses Provider Diagnoses: COPD (chronic obstructive pulmonary disease) Discharge ED - Sign-Out/Discharge Documenting (check all that apply): Patient Departure - discharge - Discharge Plan Condition: Stable Disposition: HOME Prescriptions: predniSONE 20 mg TAB [Deltasone 20 MG TAB*] 40 mg PO DAILY #10 tab Patient Education Materials: COPD (Chronic Obstructive Pulmonary Disease) (ED) Referrals: Cristin Amaro MD [Medical Doctor] - 3 Days Additional Instructions: Please follow up with , regrinder operator, in 2-3 days. Return to the Emergency Department with new or worsening symptoms. - Billing Disposition and Condition Condition: STABLE Disposition: Home - Attestation Statements Document Initiated by Scribe: Yes Documenting Scribe: Que Casey Provider For Whom Contreras is Documenting (Include Credential): Alex Mendoza MD Scribe Attestation: Que Eddy, scribed for Alex Mendoza MD on 08/26/19 at 1653. Scribe Documentation Reviewed: Yes Provider Attestation: The documentation as recorded by the Que trejo accurately reflects the service I personally performed and the decisions made by me, Alex Mendoza MD Status of Scribe Document: Viewed
[2019-08-26 14:23] VITALS: BP 144/93
== END 2019-08-26 14:20 | disposition home or self-care (01) ==
LOC: ED 11:03
DX: J44.9 Chronic obstructive pulmonary disease, unspecified (principal); Z99.81 Dependence on supplemental oxygen; R00.1 Bradycardia, unspecified; I10 Essential (primary) hypertension; Z79.899 Other long term (current) drug therapy; Z87.891 Personal history of nicotine dependence
CPT/HCPCS: 36415; 71046; 80053; 83605; 83880; 84484; 85025; 85379; 85610; 87040; 93005; 99284; J7512

== ENCOUNTER 2020-11-24 10:34 | Inpatient (IN) ==
[2020-11-24] MEDS ORDERED: Albuterol HFA INHALER 8 gm MDI INH ONE (11:29)
[2020-11-24] MEDS ORDERED: methylPREDNISolone 125 mg 2 ML VIAL IV ONE (11:30)
[2020-11-24] MEDS ORDERED: cefTRIAXone 1 gm/50 mL NS BAG 1 GM/50 ML BAG IV ONE (11:57)
[2020-11-24] MEDS ORDERED: Azithromycin 500 mg/250 ml NS 500 MG/250 ML BAG IVPB ONE (11:58)
[2020-11-24] MEDS ORDERED: methylPREDNISolone SOD SUCC 1000 MG ML VIAL ONE (12:05)
[2020-11-24] MEDS ORDERED: methylPREDNISolone 125 mg 2 ML VIAL ONE (12:07)
[2020-11-24 12:25] LABS: ABS Lymphocytes 0.4 10^3/ul (1.0-4.8); ABS Monocytes 0.4 10^3/ul (0-0.8); ABS Neutrophils 10.6 10^3/ul (1.5-7.7); Eosinophil % 0.1 %; Hematocrit 42 % (35-47); Hemoglobin 13.8 g/dL (12.0-16.0); Lymphocyte % 3.4 %; Mean Corpuscular HGB Conc 33 g/dL (31-36); Mean Corpuscular Hemoglobin 30 pg (27-31); Mean Corpuscular Volume 90 fL (80-97); Mean Platelet Volume 9.7 fL (7.4-10.4); Platelet Count 311 10^3/uL (150-450); Red Blood Count 4.68 10^6 /uL (3.70-4.87); Red Cell Distribution Width 15 % (10-15); White Blood Count 11.4 10^3/uL (3.5-10.8)
[2020-11-24 12:40] LABS: ALT 46 U/L (7-52); AST 41 U/L (13-39); Albumin/Globulin Ratio 1.4 (1-3); Alkaline Phosphatase 176 U/L (34-104); Anion Gap 7 mmol/L (2-11); Blood Urea Nitrogen 15 mg/dL (6-24); CO2 Carbon Dioxide 23 mmol/L (22-32); Calcium 9.2 mg/dL (8.6-10.3); Chloride 111 mmol/L (101-111); EGFR African American 119.5 (>60); EGFR Non-African American 98.7 (>60); Globulin 2.8 g/dL (2-4); Glucose 119 mg/dL (70-100); Lipase 12 U/L (11.0-82.0); Magnesium 1.8 mg/dL (1.9-2.7); Potassium 3.7 mmol/L (3.5-5.0); Sodium 141 mmol/L (135-145); Total Protein 6.8 g/dL (6.4-8.9)
[2020-11-24] MEDS ORDERED: Furosemide 20 mg/2 ml IV VIAL IV SLOW PU ONE (12:46)
[2020-11-24] MEDS ORDERED: Iohexol 350 (CONTRAST) 500 ML MDV IV ONE (12:50)
[2020-11-24 13:00] LABS: Influenza A Molecular Negative (Negative); Influenza B Molecular Negative (Negative)
[2020-11-24 13:10] LABS: Troponin I 0.06 ng/mL (<0.03)
[2020-11-24 17:03] LABS: Troponin I 0.05 ng/mL (<0.03)
[2020-11-24] MEDS ORDERED: Nicotine PATCH 7 MG/24 HR PATCH TRANSDERM PRN ×2 (17:54→18:14)
[2020-11-24] MEDS ORDERED: Furosemide 20 mg/2 ml IV VIAL IV ONE (17:56)
[2020-11-24] MEDS ORDERED: Ipratropium HFA INHALER(NF) (ALTERNATIVE = NEBS) INH SCH (18:00)
[2020-11-24] MEDS ORDERED: Albuterol (2.5 MG) 0.5 % CONC 0.5 ML NEB.SOLN INH SCH (18:00)
[2020-11-24] MEDS ORDERED: Albuterol 2.5mg/3 ml (0.083%) NEB.SOLN INH PRN (18:23)
[2020-11-24] MEDS ORDERED: Magnesium Sulfate 2 gm BAG 2 GM/50 ML BAG IVPB ONE (18:24)
[2020-11-24] MEDS: Enoxaparin 40 MG/0.4 ML SYR SUBCUT SCH (18:32)
[2020-11-24] MEDS ORDERED: Furosemide 20 mg/2 ml IV VIAL ONE (19:32)
[2020-11-24 20:26] LABS: Urine Appearance Clear; Urine Bilirubin Negative (Negative); Urine Blood Negative (Negative); Urine Color Yellow; Urine Glucose Negative (Negative); Urine Ketones Negative (Negative); Urine Nitrite Negative (Negative); Urine Protein Negative (Negative); Urine Specific Gravity 1.032 (1.002-1.030); Urine Urobilinogen Negative (Negative)
[2020-11-25 06:23] LABS: Hematocrit 41 % (35-47); Hemoglobin 13.2 g/dL (12.0-16.0); Mean Corpuscular HGB Conc 33 g/dL (31-36); Mean Corpuscular Hemoglobin 29 pg (27-31); Mean Corpuscular Volume 90 fL (80-97); Mean Platelet Volume 9.8 fL (7.4-10.4); Platelet Count 348 10^3/uL (150-450); Red Blood Count 4.52 10^6 /uL (3.70-4.87); Red Cell Distribution Width 15 % (10-15); White Blood Count 11.8 10^3/uL (3.5-10.8)
[2020-11-25 07:04] LABS: Albumin 3.6 g/dL (3.2-5.2); Albumin/Globulin Ratio 1.3 (1-3); C Reactive Protein 12.62 mg/L (<8.01); EGFR African American 88.7 (>60); EGFR Non-African American 73.3 (>60); Globulin 2.8 g/dL (2-4); Magnesium 2.3 mg/dL (1.9-2.7); Potassium 4.1 mmol/L (3.5-5.0); Total Bilirubin 0.5 mg/dL (0.2-1.0); Total Protein 6.4 g/dL (6.4-8.9)
[2020-11-25 08:22] LABS: ABS Lymphocytes 0.8 10^3/ul (1.0-4.8); ABS Monocytes 1.8 10^3/ul (0-0.8); ABS Neutrophils 9.1 10^3/ul (1.5-7.7); Eosinophil % 0.1 %
[2020-11-25] MEDS ORDERED: Furosemide 20 mg/2 ml IV VIAL IV ONE ×2 (08:48→11:37)
[2020-11-25] MEDS: SPIRIVA Respimat (tiotropium) 2.5 mcg/inh Inhaler INH SCH (09:53)
[2020-11-25 14:38] LABS: HDL Cholesterol 58.6 mg/dL
[2020-11-25] MEDS: Enoxaparin 40 MG/0.4 ML SYR SUBCUT SCH (17:28)
[2020-11-26] MEDS ORDERED: NS 0.9% 1000 ml BAG 1,000 ML IV SCH ×2 (06:00→10:00)
[2020-11-26 06:22] LABS: Hematocrit 43 % (35-47); Hemoglobin 14.1 g/dL (12.0-16.0); Mean Corpuscular HGB Conc 33 g/dL (31-36); Mean Corpuscular Hemoglobin 30 pg (27-31); Mean Corpuscular Volume 91 fL (80-97); Mean Platelet Volume 9.4 fL (7.4-10.4); Platelet Count 325 10^3/uL (150-450); Red Blood Count 4.76 10^6 /uL (3.70-4.87); Red Cell Distribution Width 15 % (10-15)
[2020-11-26 06:45] LABS: Calcium 8.7 mg/dL (8.6-10.3); EGFR African American 87.4 (>60); EGFR Non-African American 72.2 (>60); Potassium 4.1 mmol/L (3.5-5.0)
[2020-11-26 07:34] LABS: ABS Basophils 0.1 10^3/ul (0-0.2); ABS Eosinophils 0.3 10^3/ul (0-0.6); ABS Lymphocytes 1.7 10^3/ul (1.0-4.8); ABS Monocytes 1.8 10^3/ul (0-0.8); ABS Neutrophils 6.1 10^3/ul (1.5-7.7); Eosinophil % 3.1 %; Lymphocyte % 16.8 %; Nucleated Red Blood Cells % 0.1
[2020-11-26 08:22] LABS: Magnesium 1.9 mg/dL (1.9-2.7)
[2020-11-26] MEDS ORDERED: VERAPAMIL 2.5 MG/ML 2 ML VIAL ** 5 mg/2 ml ONE (08:36)
[2020-11-26] MEDS ORDERED: Midazolam 5 mg/5 ml VIAL 1 mg/ml 5 ml VIAL (5 mg) ONE (08:36)
[2020-11-26] MEDS ORDERED: Heparin 1,000 UNIT/ML 10 ml (10,000 UNITS) CATHLAB/DIALYSIS ONE ×2 (08:36→09:28)
[2020-11-26] MEDS ORDERED: fentaNYL 100 mcg/2 ml 50 MCG/ML VIAL ONE (08:36)
[2020-11-26] MEDS ORDERED: Heparin 2 UNITS/ML 1000 mls 2,000 ML IV ONE (08:37)
[2020-11-26] MEDS ORDERED: Iohexol 350 (CONTRAST) 200 ML MDV IV ONE ×2 (08:37→09:08)
[2020-11-26] MEDS ORDERED: Lidocaine 1% VIAL 10 MG/ML VIAL ONE (08:37)
[2020-11-26] MEDS ORDERED: nitroGLYCERIN DRIP 25,000 MCG/250 ML BTL ONE (08:37)
[2020-11-26] MEDS ORDERED: Bivalirudin 250 MG VIAL ONE (09:20)
[2020-11-26] MEDS: SPIRIVA Respimat (tiotropium) 2.5 mcg/inh Inhaler INH SCH (09:38)
[2020-11-26] MEDS: Enoxaparin 40 MG/0.4 ML SYR SUBCUT SCH (15:28)
[2020-11-27] MEDS: SPIRIVA Respimat (tiotropium) 2.5 mcg/inh Inhaler INH SCH (07:28)
[2020-11-27 07:58] LABS: Blood Urea Nitrogen 18 mg/dL (6-24); CO2 Carbon Dioxide 25 mmol/L (22-32); Calcium 8.6 mg/dL (8.6-10.3); Chloride 107 mmol/L (101-111); EGFR African American 82.6 (>60); EGFR Non-African American 68.3 (>60); Glucose 89 mg/dL (70-100); Magnesium 1.9 mg/dL (1.9-2.7); Sodium 140 mmol/L (135-145)
[2020-11-27] MEDS ORDERED: Magnesium Sulfate IV 1GM/100ML 1 GM/100 ML BAG IV ONE (08:09)
[2020-11-27 08:36] LABS: Anion Gap 8 mmol/L (2-11); Potassium 4.4 mmol/L (3.5-5.0)
[2020-11-27 10:32] LABS: % Iron Saturation 20 % (15-55); Iron 56 ug/dL (50-212); Total Iron Binding Capacity 280 mcg/dL (250-450); Transferrin 200 mg/dL (203-362); Unsaturated Iron Binding < 265 ug/dL
[2020-11-27 10:48] LABS: TSH Ultra Thyroid Stim Horm 1.74 mcIU/mL (0.34-5.60)
[2020-11-27 10:50] LABS: Free T4 1.01 ng/dL (0.61-1.12)
[2020-11-27 10:55] LABS: Ferritin 124.3 ng/mL (11-307)
[2020-11-27] MEDS ORDERED: Ondansetron 4 mg VIAL 2 MG/ML 2 ml VIAL ONE (11:44)
[2020-11-27] MEDS ORDERED: Regadenoson 0.4 MG/5 ML SYRINGE ONE (11:44)
[2020-11-27] MEDS: Enoxaparin 40 MG/0.4 ML SYR SUBCUT SCH (15:36)
[2020-11-27] MEDS: Mometasone/Formoter 100/5 MDI INH SCH (20:00)
[2020-11-28 08:03] LABS: Calcium 8.6 mg/dL (8.6-10.3); EGFR Non-African American 74.4 (>60)
[2020-11-28 08:34] LABS: Magnesium 2.1 mg/dL (1.9-2.7); Potassium 4.2 mmol/L (3.5-5.0)
[2020-11-28] MEDS: Mometasone/Formoter 100/5 MDI INH SCH ×2 (09:35→20:27)
[2020-11-28] MEDS: Enoxaparin 40 MG/0.4 ML SYR SUBCUT SCH (16:04)
[2020-11-29] MEDS: Mometasone/Formoter 100/5 MDI INH SCH ×2 (08:10→20:14)
[2020-11-29] MEDS: Enoxaparin 40 MG/0.4 ML SYR SUBCUT SCH (16:11)
[2020-11-30 07:51] LABS: Calcium 9.2 mg/dL (8.6-10.3); EGFR African American 95.6 (>60); Magnesium 1.9 mg/dL (1.9-2.7); Potassium 4.5 mmol/L (3.5-5.0)
[2020-11-30] MEDS: Mometasone/Formoter 100/5 MDI INH SCH (08:02)
[2020-11-30 14:30] VITALS: BP 120/72
[2020-11-30] MEDS: Enoxaparin 40 MG/0.4 ML SYR SUBCUT SCH (16:48)
== END 2020-11-30 18:00 | disposition home or self-care (01) ==
LOC: ED 10:34 → MED 15:47 → ED 17:09 → MED 11-28 13:57
PROVIDERS: ADMIT Internal Medicine; ATTEND Internal Medicine